=== PATIENT | male | born 1955 | race Caucasian/White ===

== ENCOUNTER 2017-12-17 06:46 | Observation (INO) | payer BC ==
[~2017-12-17] VITALS: Ht 175.3 cm; Wt 103.3 kg
[2017-12-17 07:27] LABS: BASOPHIL (%) 0.4 % (0-1); BASOPHIL COUNT 0.1 K/uL (0-0.1); EOSINOPHIL COUNT 0.1 K/uL (0-0.3); HEMATOCRIT 41.8 % (38.0-50.0); HEMOGLOBIN 13.9 G/DL (12.5-16.6); IMMATURE GRANULOCYTE (%) 0.3 % (0.0-0.7); LYMPHOCYTE (%) 6.9 % (15-42); MCH 27.9 PG (29.0-34.0); MCHC 33.3 G/DL (30.0-36.0); MCV 83.8 FL (86-99); MONOCYTE (%) 8.1 % (3-12); MONOCYTE COUNT 1.1 K/uL (0-0.8); NEUTROPHIL (%) 83.3 % (45-76); NEUTROPHIL COUNT 11.7 K/uL (1.8-6.4); PLATELET COUNT 243 K/uL (156-360); RBC DIS.WIDTH-CV 13.9 % (11.8-14.6); RBC DIS.WIDTH-SD 42.5 % (39-53); RED BLOOD COUNT 4.99 M/uL (4.00-5.50)
[2017-12-17 07:59] LABS: ALBUMIN 4.3 G/DL (3.2-4.8); ALKALINE PHOSPHATASE 155 IU/L (3-129); ALT (GPT) 38 IU/L (3-49); AST (GOT) 48 IU/L (2-34); CHLORIDE 107 MEQ/L (99-109); GFR ESTIMATE (CALCULATED) > 59 mL/min/ (58.99-99999); GLUCOSE 122 mg/dL (70-99); LIPASE 4 U/L (1.0-51.0); POTASSIUM 3.3 MEQ/L (3.7-5.4); SODIUM 139 MEQ/L (136-147); TOTAL BILIRUBIN 1.1 MG/DL (0.0-1.0); TOTAL PROTEIN 6.9 G/DL (6.4-8.3); UREA NITROGEN (BUN) 12 mg/dL (9-23)
[2017-12-17] MEDS ORDERED: LORATADINE10 M2 PO (10:48)
[2017-12-17] MEDS ORDERED: ATORVASTATIN CA40 MG PO (10:49)
[2017-12-17] MEDS ORDERED: NASONEX17 GM BOTH NARES (10:49)
[2017-12-17] MEDS ORDERED: FINASTERIDE5 MG PO (10:50)
[2017-12-17] MEDS ORDERED: BUPROPION HCL75 MG PO (10:50)
[2017-12-17] MEDS ORDERED: METFORMIN HCL500 MG PO (10:50)
[2017-12-17] MEDS ORDERED: FLOMAX0.4 MG PO (10:50)
[2017-12-17] MEDS ORDERED: RANITIDINE HCL300 MG PO (10:51)
[2017-12-17] MEDS ORDERED: MONTELUKAST SOD10 MG PO (10:51)
[2017-12-17] MEDS ORDERED: PANTOPRAZOLE SO40 MG PO (10:51)
[2017-12-17] MEDS ORDERED: AMLODIPINE BESY10 MG PO (10:51)
[2017-12-17] MEDS ORDERED: PROAIR HFA8.5 GM IH (10:52)
[2017-12-17] MEDS ORDERED: AZELASTINE137 MCG/0. BOTH NARES (10:52)
[2017-12-17 12:01] LABS: INTER. NORMALIZED RATIO 1.1
[2017-12-17 12:04] LABS: PTT 27.1 SEC (25-37)
[2017-12-17 13:07] VITALS: BP 122/74
[2017-12-17] MEDS ORDERED: DILAUDID4 MG PO (13:08)
[2017-12-17] MEDS ORDERED: ONDANSETRON HCL8 MG PO (13:08)
[2017-12-17] MEDS ORDERED: COLACE100 MG PO (13:08)
[2017-12-17 15:16] VITALS: BP 135/66
[2017-12-17 20:47] VITALS: BP 134/72
[2017-12-18] VITALS: BP 125/76
[2017-12-18 02:57] VITALS: BP 111/66
[2017-12-18 06:48] LABS: BASOPHIL (%) 0.1 % (0-1); EOSINOPHIL (%) 0 % (0-5); HEMATOCRIT 39.2 % (38.0-50.0); HEMOGLOBIN 12.7 G/DL (12.5-16.6); IMMATURE GRANULOCYTE (%) 0.5 % (0.0-0.7); LYMPHOCYTE (%) 3.7 % (15-42); LYMPHOCYTE COUNT 0.6 K/uL (1.0-2.8); MCH 27.4 PG (29.0-34.0); MCHC 32.4 G/DL (30.0-36.0); MCV 84.5 FL (86-99); MONOCYTE (%) 9.6 % (3-12); MONOCYTE COUNT 1.5 K/uL (0-0.8); NEUTROPHIL (%) 86.1 % (45-76); NEUTROPHIL COUNT 13.1 K/uL (1.8-6.4); PLATELET COUNT 247 K/uL (156-360); RBC DIS.WIDTH-CV 13.9 % (11.8-14.6); RBC DIS.WIDTH-SD 42.6 % (39-53); RED BLOOD COUNT 4.64 M/uL (4.00-5.50); WHITE BLOOD COUNT 15.3 K/uL (4.1-10.2)
[2017-12-18 07:18] LABS: CHLORIDE 104 MEQ/L (99-109); GFR ESTIMATE (CALCULATED) > 59 mL/min/ (58.99-99999); GLUCOSE 158 mg/dL (70-99); SODIUM 137 MEQ/L (136-147); UREA NITROGEN (BUN) 11 mg/dL (9-23)
[2017-12-18 07:25] LABS: POTASSIUM 4.2 MEQ/L (3.7-5.4)
[2017-12-18] MEDS ORDERED: LEVAQUIN500 MG PO (08:19)
[2017-12-18 09:00] VITALS: BP 137/84
== END 2017-12-18 14:07 | disposition home or self-care (01) ==
LOC: EME 06:46 → EDOF 09:55 → 2EAST 09:55 → EDOF 09:55 → ENRESERV 10:01 → 2EAST 12:39
PROVIDERS: Emergency Medicine; Surgery
DX: K80.12 Calculus of gallbladder with acute and chronic cholecystitis without obstruction (principal); K66.0 Peritoneal adhesions (postprocedural) (postinfection); K76.0 Fatty (change of) liver, not elsewhere classified; E78.5 Hyperlipidemia, unspecified; I10 Essential (primary) hypertension; K21.9 Gastro-esophageal reflux disease without esophagitis; N40.0 Benign prostatic hyperplasia without lower urinary tract symptoms; E11.9 Type 2 diabetes mellitus without complications
CPT/HCPCS: 76705; 80048; 80053; 82948; 83690; 85025; 85610; 85730; 88304; 93005; G0378; J1100; J1170; J1885; J2250; J2405; J2543; J2710; J3010; J7050; J7643; S0020